=== PATIENT | female | born 1990 | race Caucasian/White ===

== ENCOUNTER 2018-11-06 08:31 | Emergency (ER) | payer SELFPAY ==
[2018-11-06 08:40] VITALS: BP 112/58
--- NOTE | 2018-11-06 09:05 | Emergency Department Report ---
ED ENT HPI - General Chief complaint: Earache Stated complaint: LFT EAR PAIN Time Seen by Provider: 11/06/18 08:46 Source: patient Mode of arrival: Ambulatory Limitations: No Limitations - History of Present Illness Initial comments: This is a 28-year-old female brought by mother nontoxic, well nourished in appearance, no acute signs of distress presents to the ED with c/o of left earache. Patient denies any ear drainage. Patient denies any trauma to the area. Patient denies any mastoid tenderness or tragus tenderness. Patient denies hearing decrease or hearing changes. Patient denies any fever, chills, nausea, vomiting, chest pain, short of breath, headache or stiff neck. Patient denies any drug allergies or significant past medical history. MD complaint: ear pain -: This morning Location: L ear Severity: mild Severity scale (0 -10): 8 Quality: aching Consistency: constant Improves with: none Worsens with: none Associated Symptoms: denies: fever, cough, gum swelling, toothache, pain with swallowing, sore throat, tinnitus, hearing loss, discharge from ear, rhinorrhea - Related Data Previous Rx's Medication Instructions Recorded Last Taken Type Ciprofloxacin 0.2%(Nf) 2 drops TID #1 droperette 11/06/18 Unknown Rx [Ciprofloxacin Otic 0.2%(Nf)] Allergies Allergy/AdvReac Type Severity Reaction Status Date / Time No Known Allergies Allergy Unverified 11/06/18 08:37 ED Dental HPI - General Chief complaint: Earache Stated complaint: LFT EAR PAIN Time Seen by Provider: 11/06/18 08:46 Source: patient Mode of arrival: Ambulatory Limitations: No Limitations - Related Data Previous Rx's Medication Instructions Recorded Last Taken Type Ciprofloxacin 0.2%(Nf) 2 drops TID #1 droperette 11/06/18 Unknown Rx [Ciprofloxacin Otic 0.2%(Nf)] Allergies Allergy/AdvReac Type Severity Reaction Status Date / Time No Known Allergies Allergy Unverified 11/06/18 08:37 ED Review of Systems ROS: Stated complaint: LFT EAR PAIN Other details as noted in HPI Constitutional: denies: chills, fever Eyes: denies: eye pain, eye discharge, vision change ENT: ear pain. denies: throat pain Respiratory: denies: cough, shortness of breath, wheezing Cardiovascular: denies: chest pain, palpitations Endocrine: no symptoms reported Gastrointestinal: denies: abdominal pain, nausea, diarrhea Genitourinary: denies: urgency, dysuria, discharge Musculoskeletal: denies: back pain, joint swelling, arthralgia Skin: denies: rash, lesions Neurological: denies: headache, weakness, paresthesias Psychiatric: denies: anxiety, depression Hematological/Lymphatic: denies: easy bleeding, easy bruising ED Past Medical Hx - Past Medical History Previous Medical History?: No - Surgical History Past Surgical History?: No - Social History Smoking Status: Never Smoker Substance Use Type: None - Medications Home Medications: Home Medications Medication Instructions Recorded Confirmed Last Taken Type Ciprofloxacin 0.2%(Nf) 2 drops TID #1 droperette 11/06/18 Unknown Rx [Ciprofloxacin Otic 0.2%(Nf)] ED Physical Exam - General Limitations: No Limitations General appearance: alert, in no apparent distress - Head Head exam: Present: atraumatic, normocephalic - Expanded ENT Exam Expanded Ear exam: Present: normal external inspection TM/Canal exam: Foreign Body: Left TM Mouth exam: Present: normal external inspection - Neck Neck exam: Present: normal inspection, full ROM - Extremities Exam Extremities exam: Present: normal inspection, full ROM - Back Exam Back exam: Present: normal inspection, full ROM - Neurological Exam Neurological exam: Present: alert, oriented X3 - Psychiatric Psychiatric exam: Present: normal affect, normal mood - Skin Skin exam: Present: warm, dry, intact, normal color. Absent: rash ED Course Vital Signs 11/06/18 08:37 Temperature 98.1 F Pulse Rate 77 Respiratory 18 Rate Blood Pressure 112/58 O2 Sat by Pulse 99 Oximetry - Reevaluation(s) Reevaluation #1: 11/06/18 09:08 Patient is speaking in full sentences with no signs of distress noted. - Foreign Body Removal Ear Location: ear canal (L) Foreign Body Suspected: insect If Insect Suspected: ear canal inspected-intac Foreign Body Removed: yes Foreign Body Removal Technique: irrigation Tympanic Membrane Intact: Yes Patient Tolerated Procedure: well, no complications Complications: none ED Medical Decision Making - Medical Decision Making 28-year-old female presents with a foreign body to left ear. Patient is stable and was examined by me. No mastoid tenderness or tragus tenderness. Tympanic membrane within normal limits. Foreign body has been flushed with normal saline and foreign body has came out with appearance of a small bug in appearance. I will discharge patient with ciprofloxacin otic empirically. Patient was referred to Follow-up with a primary care doctor in 3-5 days or if symptoms worsen and continue return to emergency room as soon as possible. At time of di scharge, the patient does not seem toxic or ill in appearance. No acute signs of distress noted. Patient agrees to discharge treatment plan of care. No further questions noted by the patient. Critical care attestation.: If time is entered above; I have spent that time in minutes in the direct care of this critically ill patient, excluding procedure time. ED Disposition Clinical Impression: Foreign body in left ear Qualifiers: Encounter type: initial encounter Qualified Code(s): T16.2XXA - Foreign body in left ear, initial encounter Disposition: TO HOME OR SELFCARE Is pt being admited?: No Does the pt Need Aspirin: No Condition: Stable Instructions: Ear Foreign Body (ED) Additional Instructions: Follow-up with a primary care doctor in 3-5 days or if symptoms worsen and continue return to emergency room as soon as possible. Prescriptions: Ciprofloxacin 0.2%(Nf) [Ciprofloxacin Otic 0.2%(Nf)] 2 drops TID #1 jerome Referrals: PRIMARY CAREMD [Referring] - 3-5 Days ELEANOR MAGALLON MD [Staff Physician] - 3-5 Days [facility] [Outside] - 3-5 Days Forms: Work/School Release Form(ED)
== END 2018-11-06 09:20 | disposition home or self-care (01) ==
LOC: ED 08:31
DX: T16.2XXA Foreign body in left ear, initial encounter (principal); X58.XXXA Exposure to other specified factors, initial encounter; Y93.89 Activity, other specified; Y92.89 Other specified places as the place of occurrence of the external cause; Y99.8 Other external cause status
CPT/HCPCS: 99282

== ENCOUNTER 2021-05-23 15:57 | Emergency (ER) | payer OTHER ==
[2021-05-23 17:38] VITALS: BP 114/75
--- NOTE | 2021-05-23 18:17 | Emergency Department Report ---
ED HPI - General Chief complaint: Vaginal Bleeding Stated complaint: 6 WEEKS PREG BLEEDING Time Seen by Provider: 05/23/21 18:08 Source: patient Mode of arrival: Ambulatory Limitations: No Limitations - History of Present Illness Initial comments: Patient is a 30-year-old female presents emergency room complaints of vaginal bleeding that began today. She states that she notices the bleeding whenever she goes to the bathroom. States otherwise she is not having any bleeding. She is not having to wear a pad. She denies any blood clots. She states that she has been having some lower abdominal cramping and lower back pain. Patient states her last menstrual cycle was March 13, 2021. She reports that she is currently 6 weeks . 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 She denies any fever, nausea, vomiting, diarrhea, dysuria, abnormal vaginal discharge. No past medical history. No allergies to medications. G:/P: 3/A: 0 - Related Data Previous Rx's Medication Instructions Recorded Last Taken Type Ciprofloxacin 0.2%(Nf) 2 drops TID #1 droperette 11/06/18 Unknown Rx [Ciprofloxacin Otic 0.2%(Nf)] Allergies Allergy/AdvReac Type Severity Reaction Status Date / Time No Known Allergies Allergy Unverified 11/06/18 08:37 ED Review of Systems ROS: Stated complaint: 6 WEEKS PREG BLEEDING Other details as noted in HPI Comment: All other systems reviewed and negative ED Past Medical Hx - Past Medical History Previous Medical History?: No - Surgical History Past Surgical History?: No - Social History Smoking Status: Never Smoker Substance Use Type: None - Medications Home Medications: Home Medications Medication Instructions Recorded Confirmed Last Taken Type Ciprofloxacin 0.2%(Nf) 2 drops TID #1 droperette 11/06/18 Unknown Rx [Ciprofloxacin Otic 0.2%(Nf)] ED Physical Exam - General Limitations: No Limitations General appearance: alert, in no apparent distress - Head Head exam: Present: atraumatic, normocephalic - Eye Eye exam: Present: normal appearance - ENT ENT exam: Present: mucous membranes moist - Respiratory Respiratory exam: Present: normal lung sounds bilaterally. Absent: respiratory distress, wheezes, rales, rhonchi, stridor, chest wall tenderness, accessory muscle use, decreased breath sounds, prolonged expiratory - Cardiovascular Cardiovascular Exam: Present: regular rate, normal rhythm, normal heart sounds. Absent: systolic murmur, rubs, gallop - GI/Abdominal GI/Abdominal exam: Present: soft, normal bowel sounds. Absent: distended, tenderness, guarding, rebound, rigid - Back Exam Back exam: Absent: CVA tenderness (R), CVA tenderness (L) - Neurological Exam Neurological exam: Present: alert, oriented X3 - Psychiatric Psychiatric exam: Present: normal affect, normal mood - Skin Skin exam: Present: warm, dry, intact, normal color. Absent: rash ED Course Vital Signs 05/23/21 17:36 Temperature 98.3 F Pulse Rate 66 Respiratory 16 Rate Blood Pressure 114/75 O2 Sat by Pulse 100 Oximetry - Reevaluation(s) Reevaluation #1: 05/23/21 21:32 I have tried to call ultrasound 3 times with no answer on the phone I physically walked to the ultrasound room and asked forestry aid technician to please send the ultrasound over to radiology so the ultrasound can be read ED Medical Decision Making - Lab Data Result diagrams: 05/23/21 18:23 05/23/21 18:23 Lab Results 05/23/21 05/23/21 05/23/21 Range/Units 18:23 18:23 18:23 WBC 7.3 (4.5-11.0) K/mm3 RBC 4.41 (3.65-5.03) M/mm3 Hgb 14.3 (10.1-14.3) gm/dl Hct 41.5 (30.3-42.9) % MCV 94 (79-97) fl MCH 33 H (28-32) pg MCHC 35 H (30-34) % RDW 14.1 (13.2-15.2) % Plt Count 207 (140-440) K/mm3 Lymph % (Auto) 25.5 (13.4-35.0) % [place] % (Auto) 8.2 H (0.0-7.3) % Eos % (Auto) 2.6 (0.0-4.3) % Baso % (Auto) 1.2 (0.0-1.8) % Lymph # (Auto) 1.9 (1.2-5.4) K/mm3 [place] # (Auto) 0.6 (0.0-0.8) K/mm3 Eos # (Auto) 0.2 (0.0-0.4) K/mm3 Baso # (Auto) 0.1 (0.0-0.1) K/mm3 Seg Neutrophils % 62.5 (40.0-70.0) % Seg Neutrophils # 4.6 (1.8-7.7) K/mm3 Sodium 140 (137-145) mmol/L Potassium 4.3 (3.6-5.0) mmol/L Chloride 103.8 (98-107) mmol/L Carbon Dioxide 25 (22-30) mmol/L Anion Gap 16 mmol/L BUN 16 (7-17) mg/dL Creatinine 0.5 L (0.6-1.2) mg/dL Estimated GFR > 60 ml/min BUN/Creatinine Ratio 32 % Glucose 93 (65-100) mg/dL Calcium 9.2 (8.4-10.2) mg/dL Total Bilirubin 0.30 (0.1-1.2) mg/dL AST 20 (5-40) units/L ALT 22 (7-56) units/L Alkaline Phosphatase 68 (35-129) units/L Total Protein 8.0 (6.3-8.2) g/dL Albumin 4.6 (3.9-5) g/dL Albumin/Globulin Ratio 1.4 % HCG, Quant 43350 H (0-4) mIU/mL Urine Color (Yellow) Urine Turbidity (Clear) Urine pH (5.0-7.0) Ur Specific [place] (1.003-1.030) Urine Protein (Negative) mg/dL Urine Glucose (UA) (Negative) mg/dL Urine Ketones (Negative) mg/dL Urine Blood (Negative) Urine Nitrite (Negative) Urine Bilirubin (Negative) Urine Urobilinogen (<2.0) mg/dL Ur Leukocyte Esterase (Negative) Urine WBC (Auto) (0.0-6.0) /HPF Urine RBC (Auto) (0.0-6.0) /HPF U Epithel Cells (Auto) (0-13.0) /HPF Urine Mucus /HPF Blood Type 05/23/21 05/23/21 Range/Units 18:30 Unknown WBC (4.5-11.0) K/mm3 RBC (3.65-5.03) M/mm3 Hgb (10.1-14.3) gm/dl Hct (30.3-42.9) % MCV (79-97) fl MCH (28-32) pg MCHC (30-34) % RDW (13.2-15.2) % Plt Count (140-440) K/mm3 Lymph % (Auto) (13.4-35.0) % [place] % (Auto) (0.0-7.3) % Eos % (Auto) (0.0-4.3) % Baso % (Auto) (0.0-1.8) % Lymph # (Auto) (1.2-5.4) K/mm3 [place] # (Auto) (0.0-0.8) K/mm3 Eos # (Auto) (0.0-0.4) K/mm3 Baso # (Auto) (0.0-0.1) K/mm3 Seg Neutrophils % (40.0-70.0) % Seg Neutrophils # (1.8-7.7) K/mm3 Sodium (137-145) mmol/L Potassium (3.6-5.0) mmol/L Chloride (98-107) mmol/L Carbon Dioxide (22-30) mmol/L Anion Gap mmol/L BUN (7-17) mg/dL Creatinine (0.6-1.2) mg/dL Estimated GFR ml/min BUN/Creatinine Ratio % Glucose (65-100) mg/dL Calcium (8.4-10.2) mg/dL Total Bilirubin (0.1-1.2) mg/dL AST (5-40) units/L ALT (7-56) units/L Alkaline Phosphatase (35-129) units/L Total Protein (6.3-8.2) g/dL Albumin (3.9-5) g/dL Albumin/Globulin Ratio % HCG, Quant (0-4) mIU/mL Urine Color Yellow (Yellow) Urine Turbidity Clear (Clear) Urine pH 6.0 (5.0-7.0) Ur Specific [place] 1.025 (1.003-1.030) Urine Protein <15 mg/dl (Negative) mg/dL Urine Glucose (UA) Neg (Negative) mg/dL Urine Ketones Neg (Negative) mg/dL Urine Blood Mod (Negative) Urine Nitrite Neg (Negative) Urine Bilirubin Neg (Negative) Urine Urobilinogen 2.0 (<2.0) mg/dL Ur Leukocyte Esterase Sm (Negative) Urine WBC (Auto) 4.0 (0.0-6.0) /HPF Urine RBC (Auto) 1.0 (0.0-6.0) /HPF U Epithel Cells (Auto) 4.0 (0-13.0) /HPF Urine Mucus Few /HPF Blood Type O POSITIVE - Radiology Data Radiology results: report reviewed Ordering Physician: SINAN KO Date of Service: 05/23/21 Procedure(s): US OB <= 14 weeks fetus Accession Number(s): [id number] cc: SINAN KO ULTRASOUND OBSTETRIC INDICATION / CLINICAL INFORMATION: , bleeding. Serum hCG 12,421 Clinical Gestational Age (GA) in weeks, days: 10 weeks 1 day TECHNIQUE: Transabdominal. COMPARISON: None available. FINDINGS: GESTATIONAL SAC: There is a gestational sac measuring 1.79 cm containing a fe olivia pole of crown-rump length of 3.4 mm. This corresponds to ultrasound age of 6 weeks 3 day. heart rate was not obtained. YOLK SAC: Yolk sac present. ADNEXA: Right ovary is normal measuring 2.3 x 1.2 x 1.4 cm. The left ovary is not identified. FREE FLUID: None. ADDITIONAL FINDINGS: There is a small subchorionic hemorrhage measuring 0.8 x 0.4 x 1.1 cm.. IMPRESSION: 1. pole with ultrasound age of 6 week 3 day, considerably less than given clinical age of 10 weeks 1 day by last menstrual period. No heart rate is detected. However, the crown-rump length is less than 7 mm. Recommend short-term follow-up and SHOCK ABSORBER INSTALLER consultation as clinically indicated. 2. Small subchorionic hematoma. Signer Name: Jose Luis Denise MD Signed: 05/23/2021 9:33 PM Workstation Name: [id number] Transcribed By: DB Dictated By: JOSE LUIS DENISE MD Electronically Authenticated By: JOSE LUIS DENISE MD Signed Date/Time: 05/23/212132 DD/ 24 TD/TT: Print - Medical Decision Making Patient is a 30-year-old female presents emergency room complaints of vaginal bleeding that began today. She states that she notices the bleeding whenever she goes to the bathroom. States otherwise she is not having any bleeding. She is not having to wear a pad. She denies any blood clots. She states that she has been having some lower abdominal cramping and lower back pain. Patient states her last menstrual cycle was March 13, 2021. She reports that she is currently 6 weeks . 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 She denies any fever, nausea, vomiting, diarrhea, dysuria, abnormal vaginal discharge. No past medical history. No allergies to medications. G:/P: 3/A: 0. Vitals are normal. No abnormality on physical examination as documented in chart. Labs are stable. Patient is Rh+. UA is within normal limits. OB ultrasound: 1. pole with ultrasound age of 6 week 3 day, considerably less than given clinical age of 10 weeks 1 day by last menstrual period. No heart rate is detected. However, the crown-rump length is less than 7 mm. Recommend short-term follow-up and SHOCK ABSORBER INSTALLER consultation as clinically indicated. 2. Small subchorionic hematoma. Discussed all results with patient and discussed threatened miscarriage. Discussed the importance of outpatient SHOCK ABSORBER INSTALLER follow-up. Advised patient May take Tylenol as needed for any discomfort. Increase your water intake. Please practice pelvic rest, no sexual intercourse, no douching, no tampons. Follow-up with your SHOCK ABSORBER INSTALLER. You need to have a repeat hCG quant in 2 days. [place] today 05/23/2021 is [id number]. Return to emergency room for any new or symptoms. Critical care attestation.: If time is entered above; I have spent that time in minutes in the direct care of this critically ill patient, excluding procedure time. ED Disposition Clinical Impression: Vaginal bleeding affecting early Subchorionic hematoma in first trimester Qualifiers: Fetus number: single or unspecified fetus Qualified Code(s): O41.8X10 - Other specified disorders of amniotic fluid and membranes, first trimester, not applicable or unspecified Disposition: 01 HOME / SELF CARE / HOMELESS Is pt being admited?: No Does the pt Need Aspirin: No Condition: Stable Instructions: Vaginal Bleeding During , First Trimester, [id number], Subchorionic Hematoma Additional Instructions: May take Tylenol as needed for any discomfort. Increase your water intake. Please practice pelvic rest, no sexual intercourse, no douching, no tampons. Follow-up with your SHOCK ABSORBER INSTALLER. You need to have a repeat hCG quant in 2 days. Her [place] quant today 05/23/2021 [place] [id number]. Return to emergency room for any new or symptoms. Puede brian Tylenol segn sea necesario para cualquier malestar. Incrementa tu ingesta de agua. Por favor practique reposo plvico, no tenga relaciones sexuales, no se duche, no use tampones. Jessica un seguimiento con reed obstetra / gineclogo. Necesita repetir la cantidad de hCG en 2 carter. Reed cantidad de hCG hoy 23/05/2021 es [id number]. Regrese a la kenny de emergencias por cualquier sntoma nuevo. Referrals: PRIMARY CARE, [Primary Care Provider] - 2-3 Days your, avionics supervisor [Other] - 2-3 Days Time of Disposition: 21:40 Print Language: TURKMEN
[2021-05-23 18:47] LABS: Basophils # (Auto) 0.1 K/mm3 (0.0-0.1); Basophils % (Auto) 1.2 % (0.0-1.8); Eosinophils # (Auto) 0.2 K/mm3 (0.0-0.4); Eosinophils % (Auto) 2.6 % (0.0-4.3); Hematocrit 41.5 % (30.3-42.9); Hemoglobin 14.3 gm/dl (10.1-14.3); Lymphocytes # (Auto) 1.9 K/mm3 (1.2-5.4); Lymphocytes % (Auto) 25.5 % (13.4-35.0); Mean Corpuscular HGB Conc 35 % (30-34); Mean Corpuscular Volume 94 fl (79-97); Monocytes # (Auto) 0.6 K/mm3 (0.0-0.8); Monocytes % (Auto) 8.2 % (0.0-7.3); Platelet Count 207 K/mm3 (140-440); Red Blood Count 4.41 M/mm3 (3.65-5.03); Red Cell Distribution Width 14.1 % (13.2-15.2)
[2021-05-23 18:51] LABS: Alanine Aminotransferase 22 units/L (7-56); Albumin 4.6 g/dL (3.9-5); BUN/Creatinine Ratio 32; Blood Urea Nitrogen 16 mg/dL (7-17); Calcium 9.2 mg/dL (8.4-10.2); Hemolysis Index 9
[2021-05-23 18:55] LABS: Bilirubin,Urine NEG (Negative); Blood,Urine MOD (Negative); Color,Urine Yellow (Yellow); Mucus,Urine FEW /HPF; Protein,Urine <15 mg/dL mg/dL (Negative)
--- NOTE | 2021-05-23 21:38 | Ultrasound Report ---
ULTRASOUND OBSTETRIC INDICATION / CLINICAL INFORMATION: , bleeding. Serum hCG 12,421 Clinical Gestational Age (GA) in weeks, days: 10 weeks 1 day TECHNIQUE: Transabdominal. COMPARISON: None available. FINDINGS: GESTATIONAL SAC: There is a gestational sac measuring 1.79 cm containing a pole of crown-rump l ength of 3.4 mm. This corresponds to ultrasound age of 6 weeks 3 day. heart rate was not obtain ed. YOLK SAC: Yolk sac present. ADNEXA: Right ovary is normal measuring 2.3 x 1.2 x 1.4 cm. The left ovary is not identified. FREE FLUID: None. ADDITIONAL FINDINGS: There is a small subchorionic hemorrhage measuring 0.8 x 0.4 x 1.1 cm.. IMPRESSION: 1. pole with ultrasound age of 6 week 3 day, considerably less than given clinical age of 10 we eks 1 day by last menstrual period. No heart rate is detected. However, the crown-rump length i s less than 7 mm. 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 2. Small subchorionic hematoma. Signer Name: Jose Luis Denise MD Signed: 05/23/2021 9:33 PM Workstation Name: [id number]
== END 2021-05-23 21:50 | disposition home or self-care (01) ==
LOC: ED 15:57
DX: O20.8 Other hemorrhage in early pregnancy (principal); Z3A.01 Less than 8 weeks gestation of pregnancy; Z79.899 Other long term (current) drug therapy
CPT/HCPCS: 36415; 76801; 80053; 81001; 84702; 85025; 86900; 86901; 99284